=== PATIENT | female | born 1995 | race African-American/Black ===

== ENCOUNTER 2023-12-14 08:04 | Outpatient (CLI) | payer OTHER ==
[~2023-12-14] VITALS: Ht 157.6 cm; Wt 53.7 kg
[2023-12-14 08:52] VITALS: BP 108/72; PULSE 82; TEMP 98.2
[2023-12-14 10:22] VITALS: BP 102/76; PULSE 83
[2023-12-14 10:35] VITALS: BP 98/72; PULSE 77
--- NOTE | 2023-12-14 10:40 | NUR ---
Pt resting comfortably in bed since return from [facility]. Dr Cruz was in to speak with pt about test and plan. Pt sipping water, refuses snack. She has some chest wall discomfort when she sits up on edge of bed. VS remain stable, she states she is ready to go home. IV DC'd, site wrapped with coban. Pt and significant other escorted out to waiting room. Gait steady.
== END 2023-12-14 10:40 | disposition home or self-care (01) ==
LOC: COL.CAR 08:04
DX: R42 Dizziness and giddiness (principal); R00.2 Palpitations; R07.9 Chest pain, unspecified